=== PATIENT | female | born 1985 | race Caucasian/White ===

== ENCOUNTER 2016-08-25 00:04 | Inpatient (IN) | payer BC ==
[2016-08-25] MEDS ORDERED: OXYTOCIN/DEXTROSE 5%-WATER 30 UNITS/500 ML BAG IV ONE ×3 (00:06→14:50)
[2016-08-25] MEDS ORDERED: DEXTROSE 5%-LACTATED RINGERS 1,000 ML IV PRN (00:06)
[2016-08-25] MEDS ORDERED: LIDOCAINE HCL 50 ML VIAL PERI PRN (00:06)
[2016-08-25] MEDS ORDERED: ONDANSETRON HCL/PF 2 MG/ML VIAL IV PRN (00:06)
[2016-08-25] MEDS ORDERED: RINGERS SOLUTION,LACTATED 1,000 ML IV ONE (00:06)
[2016-08-25] MEDS ORDERED: RINGERS SOLUTION,LACTATED 1,000 ML IV PRN (00:06)
--- NOTE | 2016-08-25 09:01 | PN ---
Progess Note - Interim Narrative: 08/25/16 08:58 Subjective-patient is doing just fine, anxious to have her baby Objective- SVE-5/50/-3, amniotomy performed with clear fluid FHTs- 4, moderate variability, no decelerations [place]- every 2-3 minutes Assessment and plan- Labor-induction with Pitocin and amniotomy heart tones-Category I, II, III GBS status-negative Continue current plan of care.
[2016-08-25] MEDS ORDERED: BUPIVACAINE HCL/0.9 % NACL/PF 250 ML EP PRN (09:30)
[2016-08-25] MEDS ORDERED: NALOXONE HCL 1 MG/1 ML SYRG IV PRN (09:30)
[2016-08-25] MEDS ORDERED: BUPIVACAINE HCL/PF 30 ML VIAL EP ONE (09:30)
--- NOTE | 2016-08-25 10:17 | OR ---
Anesthesia Procedure Note - Anesthesia Procedure Note Date of Service: 08/25/16 Narrative: Vital Signs - Last Taken Temp Pulse 62 08/25/16 09:56 Resp 18 08/25/16 09:56 BP 106/57 08/25/16 09:56 Pulse Ox 99 08/25/16 09:56 08/25/16 10:16 ANESTHESIA PROCEDURE NOTE Date of Procedure: 08/25/2016. Time of procedure: 954. Performed by: Ortiz Mauricio CRNA Cnc Lathe Machine Operator: None. Preprocedure diagnosis: Active labor. Post procedure diagnosis: Same. Procedure: Insertion of labor epidural. Indications: The patient is a 31 -year-old female in active labor requesting labor epidural for pain management. Findings: See below. Details of the procedure: The patient was placed in a sitting position. DuraPrep as well as Betadine swabs 3 was applied to the patient's back. Patient was then draped in a sterile fashion. Lidocaine 1% was infiltrated to the skin and subcutaneous tissues at the level of the L3-4 interspace. The epidural space was identified using a 18-gauge Tuohy needle with loss-of- resistance technique. Epidural catheter was inserted to a depth of 12 centimeters at skin. Negative test dose was elicited using 3 mL of 1.5% preservative-free lidocaine plus epinephrine 1 200,000. The epidural catheter was then taped and secured in place. A loading dose of 8 mL of 0.25% preservative-free bupivacaine was administered to the epidural catheter after negative aspiration for blood and CSF. EBL: Minimal. Fluids: N/A. Specimen: N/A. Post procedure condition: The patient tolerated the procedure well. No complications were noted. Thank you for this consultation. Ortiz Mauricio CRNA
[2016-08-25] MEDS ORDERED: SENNOSIDES 8.6 MG TABLET PO PRN (14:50)
[2016-08-25] MEDS ORDERED: GLYCERIN/WITCH HAZEL LEAF 40 APPL BOX TP PRN (14:50)
[2016-08-25] MEDS ORDERED: HYDROCORTISONE 30 APPL TUBE TP PRN (14:50)
[2016-08-25] MEDS ORDERED: oxyCODONE HCL/ACETAMINOPHEN 1 TAB TABLET PO PRN ×2 (14:50)
[2016-08-25] MEDS ORDERED: BENZOCAINE/MENTHOL 81 SPRAY CAN TP PRN (14:50)
[2016-08-25] MEDS ORDERED: BISACODYL 10 MG SUPP.RECT RC PRN (14:50)
--- NOTE | 2016-08-25 14:53 | OR ---
Operative Report - Dictated Report Narrative: Spontaneous Vaginal Delivery Viable female with APGARS of 9 at 1 minute and 9 at 5 minutes. Delivered at 1430. Presentation was ARMANDO. No nuchal cord was noted. The left anterior shoulder delivered easily with gentle downward traction followed by the remainder of the baby. The baby cried immediately and was placed on the maternal abdomen and was dried. The cord was then clamped and cut after approximately 1 minute. Weight: 7 pounds 5.1 ounce or 3329 g Placenta was delivered spontaneously and intact. No lacerations were noted. Estimated blood loss: 100 ml Mother and baby tolerated delivery well.
[2016-08-25] MEDS: IBUPROFEN 800 MG TABLET PO PRN (16:34)
[2016-08-25] MEDS: DOCUSATE SODIUM 100 MG CAPSULE PO SCH (20:29)
--- NOTE | 2016-08-26 08:59 | PN ---
Progess Note - Interim Narrative: 08/26/16 08:50 progress note Subjective: The patient is doing well. She is ambulating, voiding, tolerating by mouth. She has minimal pain and moderate lochia. Objective: General: No acute distress Abdomen: Soft, nontender, fundus is firm just below the umbilicus Extremities: minimal edema, nontender to palpation Assessment and plan: day 1 Feeding: Breast Pain: Controlled with by mouth medication control: Mirena Routine care. Pt desires to be d/c home today.
[2016-08-26] MEDS: DOCUSATE SODIUM 100 MG CAPSULE PO SCH (09:14)
[2016-08-26] MEDS: IBUPROFEN 800 MG TABLET PO PRN (09:14)
[2016-08-26 16:42] VITALS: BP 128/76
== END 2016-08-26 17:25 | disposition home or self-care (01) | DRG 775 ==
LOC: OB 00:04
PROVIDERS: ADMIT Obstetrics & Gynecology Gynecologic Oncology; ATTEND Obstetrics & Gynecology Gynecologic Oncology
PROC: 10E0XZZ Delivery of Products of Conception, External Approach (ICD-10-PCS; principal; 2016-08-25)
PROC: 3E033VJ Introduction of Other Hormone into Peripheral Vein, Percutaneous Approach (ICD-10-PCS; 2016-08-25)
PROC: 10907ZC Drainage of Amniotic Fluid, Therapeutic from Products of Conception, Via Natural or Artificial Opening (ICD-10-PCS; 2016-08-25)
PROC: 4A1HXCZ Monitoring of Products of Conception, Cardiac Rate, External Approach (ICD-10-PCS; 2016-08-25)
PROC: 3E0S3CZ (ICD-10-PCS; 2016-08-25)
DX: O80 Encounter for full-term uncomplicated delivery (principal); Z3A.39 39 weeks gestation of pregnancy; Z37.0 Single live birth